=== PATIENT | female | born 1965 | race Caucasian/White ===

== ENCOUNTER → 2023-09-28 08:43 | Outpatient (REF) | payer OTHER, SELFPAY | LOC: HWRAD 08:43 | PROVIDERS: ATTENDING PHYSICIAN Physician Assistant Medical | DX: R10.13 Epigastric pain (principal); R10.31 Right lower quadrant pain; R14.0 Abdominal distension (gaseous) | CPT/HCPCS: 74177; Q9967 ==

== ENCOUNTER → 2023-10-14 15:09 | Outpatient (REF) | payer OTHER, SELFPAY | LOC: HWWDC 15:09 | PROVIDERS: ATTENDING PHYSICIAN Physician Assistant Medical | DX: Z12.31 Encounter for screening mammogram for malignant neoplasm of breast (principal) | CPT/HCPCS: 77063; 77067 ==

== ENCOUNTER → 2023-11-24 13:59 | Outpatient (REF) | payer OTHER, SELFPAY | LOC: HWRAD 13:59 | PROVIDERS: ATTENDING PHYSICIAN Nurse Practitioner Adult Health; FAMILY PHYSICIAN Physician Assistant Medical | DX: R10.2 Pelvic and perineal pain (principal) | CPT/HCPCS: 76830; 76856 ==